=== PATIENT | male | born 1955 | race Caucasian/White ===

== ENCOUNTER 2022-09-20 19:30 | Outpatient (CLI) | payer BC | END 2022-09-20 19:31 | disposition home or self-care (01) | LOC: SLEEPLAB 19:30 | PROVIDERS: ATTEND Physician Assistant | DX: G47.33 Obstructive sleep apnea (adult) (pediatric) (principal); R53.83 Other fatigue; K21.9 Gastro-esophageal reflux disease without esophagitis; E66.9 Obesity, unspecified; R06.83 Snoring; G47.00 Insomnia, unspecified; J44.9 Chronic obstructive pulmonary disease, unspecified; I10 Essential (primary) hypertension; R35.1 Nocturia; G47.10 Hypersomnia, unspecified; G47.52 REM sleep behavior disorder; Z68.35 Body mass index [BMI] 35.0-35.9, adult | CPT/HCPCS: 95811 ==

== ENCOUNTER 2023-02-14 10:26 | Outpatient (CLI) | payer MEDICARE, OTHER | END 2023-02-14 10:27 | disposition home or self-care (01) | LOC: RAD 10:26 | PROVIDERS: ATTEND Internal Medicine Critical Care Medicine | DX: R06.00 Dyspnea, unspecified (principal) | CPT/HCPCS: 71046 ==

== ENCOUNTER 2024-06-06 12:36 | Day surgery (SDC) | payer MEDICARE, OTHER ==
[2024-06-06 12:51] LABS: #Basophils 0.07 10x3/uL (0.0-0.2); %Basophils 0.8 % (0.0-1.0); %Eosinophils 2.5 % (0.0-10.0); %Lymphocytes 21.1 % (21.0-51.0); %Monocytes 12.4 % (0.0-10.0); %Neutrophils 62.8 % (42.0-75.0); Hematocrit 46.5 % (42.0-52.0); Hemoglobin 15.2 g/dL (14.0-18.0); Mean Corpuscular HGB CONC 32.7 g/dL (32.0-36.0); Mean Corpuscular Volume 100.9 fL (78.0-98.0); Platelet Count 195 10x3/uL (130-400); RBC Distribution Width 16.7 % (11.5-14.5); Red Blood Cell (RBC) Count 4.61 mill/uL (4.70-6.10)
[2024-06-06] MEDS ORDERED: Lidocaine 1% PF 5 ML VIAL ONE (12:52)
[2024-06-06] MEDS ORDERED: Sodium Bicarbonate 2.5 MEQ/5 ML SDV ONE (12:52)
[2024-06-06 13:08] LABS: INR-International Normal Ratio 1.4; PTT 34.1 sec (22.9-36.1)
== END 2024-06-06 14:20 | disposition home or self-care (01) ==
LOC: ULT 12:36
PROVIDERS: ATTEND Physician Assistant Medical
PROC: 0W9G30Z Drainage of Peritoneal Cavity with Drainage Device, Percutaneous Approach (ICD-10-PCS; principal; 2024-06-06)
DX: R18.8 Other ascites (principal); R79.89 Other specified abnormal findings of blood chemistry; I50.30 Unspecified diastolic (congestive) heart failure
CPT/HCPCS: 36415; 49083; 85025; 85610; 85730